=== PATIENT | female | born 2000 | race Caucasian/White ===

== ENCOUNTER 2023-07-28 06:52 | Outpatient (CLI) | payer OTHER, SELFPAY ==
--- NOTE | 2023-07-28 07:00 | MR_ITS ---
WS: [id number] MR VENOGRAPHY HEAD 3-D noncontrast imaging performed through the cerebral veins. All imaging is reviewed. HISTORY: H47.10 - Unspecified papilledema COMPARISON: None available. Adequate demonstration of the dural venous sinuses. Normal appearance of the superior sagittal sinus. Dominant LEFT transverse sinus and sigmoid sinus. There is a very small caliber RIGHT transverse sin us and sigmoid sinus. There is no thrombus or signal abnormality noted in the small caliber transvers e sinus as seen on the recent MRI of the brain. Favor this is a normal variant. The straight sinus is normal. No jugular vein thrombosis. IMPRESSION: 1. No dural venous sinus thrombosis. 2. Asymmetry of the transverse and sigmoid sinuses is normal developmental variation with the RIGHT being smaller than the LEFT. Also, no signal abnormality was noted on the recent MRI the brain in the region of the RIGHT transverse sinus.
--- NOTE | 2023-07-28 07:15 | MR_ITS ---
WS: [id number] MRI ORBITS with and without CONTRAST. COMPARISON: None Multiplanar, multisequence imaging is performed with and without contrast. 12 mL MultiHance. Motion artifact on several of the sequences. No diffusion abnormality. No hemorrhage. No evidence for demyelination by MRI. Normal appearance of t he corpus callosum. Normal sized ventricles. There is significant motion artifact on several of the sequences limiting evaluation of the orbits an d optic nerves. The nerves appear symmetric without significant enhancement. There is no atrophy enla rgement or mass identified. No abnormality near the optic chiasm. Variable signal within the pituitar y gland but cannot confirm adenoma. Infundibulum and optic chiasm are normal positions. No paranasal sinus disease. Small amount of fluid in the mastoid air cells. Cerebellopontine angles a re negative. Normal flow voids. Normal enhancement of the cerebral arteries. IMPRESSION: 1. Quality of this examination is significantly compromised by imaging technique and motion. 2. Symmetric appearance of the optic nerves. No asymmetry or enhancement. No evidence for optic neur itis. 3. No demyelinating lesions within the brain. 4. No enhancing masses. No mass effect upon the optic chiasm or infundibulum.
[2023-07-28] MEDS: gadobenate dimeglumine 20 mL vial IV (11:27)
== END 2023-07-28 06:53 | disposition home or self-care (01) ==
LOC: RAD 06:52
PROVIDERS: Visit Provider Specialist
DX: H47.10 Unspecified papilledema (principal)
CPT/HCPCS: 70543; 70544; 70553; A9577